=== PATIENT | female | born 1955 | race Caucasian/White ===

== ENCOUNTER → 2021-07-11 | Outpatient (CLI) | payer BC ==
[~2021-07-11] MED LIST: LEVO88TA70 PO; LISI-130 PO; MULT-735 PO; OMEP20TA63 PO; TOLT2CAP PO; vitamin b 12; vitamin b 6
--- NOTE | 2021-07-11 13:38 | PDOC1 ---
INITIAL PAIN CONSULT DATE OF SERVICE: DOS: DATE: 07/11/21 TIME: 13:26 CHIEF COMPLAINT: Chief Complaint: Low back and left lower extremity pain HISTORY OF PRESENT ILLNESS: 65-year-old female presents with history of pain for many years starting after lumbar surgery with laminectomy and then cage fusion in 2008 patient reports initially she did well after the surgery but the pain again returned in December 2020 she was riding a horse fairly aggressively by her report with some increased impact to her spine and had some significant pain in the left lower extremity as well as the low back to the toes on the left side as well patient reports she is done physical therapy as well as doing exercise on her own chiropractic treatments near her home as well as trigger point injections all of which helped the pain but only minimally patient continues to do stretching strength exercises as well daily as well as heat applications to the low back which is helpful but not decreasing the pain significant patient is been taking Percocet which does decrease the pain but not 100% either patient reports the pain wakes her up from sleep at night at least 4-5 times at night does not affect her bowel bladder control does affect ability to walk up which is not use any assistive devices to ambulate. Patient did have an MRI scan of the lumbar spine showing at L4-5 surgical level as well as mild to moderate left neuroforaminal narrowing with possible abutment of the exiting L4 nerve L5-S1 shows surgical level also loss of disc height and moderate left neural foraminal narrowing and abutment of the exiting left L5 nerve root with mild right neuroforaminal narrowing with possible abutment of the exiting right L5 nerve root. Patient is recently seen neurosurgeon who is recommending no surgical interventions at this time. Patient reports no loss of motor function but significant fatigability of the left lower extremity with even walking for more than 10 to 15 minutes. Patient reports her disability rating 0-10 10 being worst is a 7 with recreation 8 with social activity 3 with occupation 2 with self-care and 5 life support activities. PAST MEDICAL HISTORY: PMH: Hypertension, arthritis, cigarette smoking, hypothyroidism PREVIOUS SURGERIES: Past Surgical Hx: Hysterectomy, laminectomy, cholecystectomy, left kidney surgery, bilateral knee surgery, left hand surgery, lumbar laminectomy with cage fusion of L3-4-5 and S1 2009 CURRENT MEDICATIONS: Current Meds: Active Scripts Medications Dose Route/Sig Max Daily Dose Days Date Category [vitamin b 12] 07/11/21 Reported [vitamin b 6] 07/11/21 Reported One-Daily Multi-Vitamin (Multivitamin) 1 Each Tablet 1 Tab PO DAILY 30 07/11/21 Reported Detrol La (Tolterodine Tartrate) 2 Mg Cap.er.24h 2 Mg PO BID 07/11/21 Reported Prilosec Otc (Omeprazole Magnesium) 20 Mg Tablet.dr 40 Mg PO DAILY 07/11/21 Reported Lisinopril 40 Mg Tablet 1 Tab PO DAILY 07/11/21 Reported Synthroid (Levothyroxine Sodium) 88 Mcg Tablet 1 Tab PO DAILY 07/11/21 Reported ALLERGIES; Allergies: Coded Allergies: codeine (Verified Allergy, Severe, anaphalaxis, 07/11/21) FAMILY HISTORY: Family Hx: Alzheimer's disease, heart disease, aneurysm SOCIAL HISTORY: Social Hx: Patient drinks alcohol very rarely smokes 1/3 pack of cigarettes and has for the last 40 years continues to smoke not use any illegal illicit or recreational drugs is , stays very active with maintaining her horses and land, and lives in [place], [place] REVIEW OF SYSTEMS: ROS: Positive for those items mentioned in history of present illness, all systems are reviewed, otherwise negative ,and are complete full and well-documented on patient's chart. PHYSICAL EXAM: VS: Blood pressure is 139/78 pulse 98 respirations 18 temperature 98.3 F height is 5 feet 3 inches weight 169 pounds. PE: PHYSICAL EXAMINATION: GENERAL: The patient is awake, alert, oriented, appropriate, very pleasant in demeanor, patient companied by her sister. HEENT: Shows normocephalic, atraumatic. Extraocular movements are intact and symmetrical. Oral cavity: Mucous membranes moist and pink. Dentition is intact. NECK: Shows anterior throat supple without palpable lymphadenopathy noted. Swallow reflex symmetrical. CHEST: Shows normal on inspection. Breath sounds are clear bilaterally, no rales rhonchi wheezes auscultated. HEART: Shows S1, S2 clear. No murmurs auscultated. ABDOMEN: Soft, nontender, nondistended. No palpable organomegaly is noted. BACK: Shows spine grossly in the midline. Normal-appearing cervical lordotic curvature. There is mild increased thoracic kyphosis, some flattening of the lumbar lordotic curvature with well-healed surgical scarring. Lumbar paraspinous muscles show symmetrical on inspection, on palpation shows some moderate tenderness diffusely throughout the upper, middle and lower distribution of the paraspinous muscles bilaterally and also into the lower thoracic paraspinous musculature, firm and tender, but without specific trigger points, without radiation of pain. The patient has good rotational motion of the lumbar spine, both laterally as well as extension and flexion without significant difficulty. No tenderness over the spinous processes, sacrum or sacroiliac regions. EXTREMITIES: Lower extremities show deep tendon reflexes 2+ in the patellar and tendo calcaneus tendons. Motor exam is 5 on a scale of 5 with right dorsiflexion, extension, quadriceps and hamstring flexion and 4/5 on the left. Peripheral pulses are 1+ posterior tibial. No peripheral edema is noted bilaterally. Lower extremities are warm and dry to touch, equal in color and appearance. Straight leg raise noted to be positive on the left approximate 35 degrees, decreased with knee flexion, right side is negative. Gaenslen's and Trenton's maneuvers are negative bilaterally. The patient is able to stand, stand on her toes without significant difficulty putting all her weight on her left side loses balance easily. Patient is walking with a slight antalgic gait does slightly favor the left lower extremity but not use any assistive device such as canes or walkers to ambulate. SKIN: Shows warm and dry, good turgor. No edema. No sores, rashes or bruising throughout. IMPRESSION: Impression: 65-year-old female with 6-month history of low back left lower extremity pain and radicular fashion following a L5-S1 dermatomal distribution. MRI scan lumbar spine as noted Previous lumbar surgery with fusion Arthritis Hypertension Cigarette smoking Plan: Options were discussed with the patient including conservative medical managements continued physical therapies and interventional techniques. Patient is doing physical therapies as had little success with medication management she like to pursue interventional techniques. We discussed a transforaminal epidural steroid injection using descriptions as well as anatomical models to describe the procedure. Patient would like to wait for preauthorization with her insurance provider once obtained we will have her return to clinic for a left-sided L5-S1 transforaminal epidural steroid injection with fluoroscopic guidance. In meantime, patient will continue with stretching strength exercises daily exercises as well as oral analgesics as currently. ENMANUEL HALL MD Jul 11, 2021 13:37
== END | disposition home or self-care (01) ==
LOC: PNCL 09:43
PROVIDERS: ATTEND Anesthesiology
DX: M79.605 Pain in left leg (principal); M54.50 Low back pain, unspecified; I10 Essential (primary) hypertension; M19.90 Unspecified osteoarthritis, unspecified site; E03.9 Hypothyroidism, unspecified; Z87.891 Personal history of nicotine dependence; Z90.710 Acquired absence of both cervix and uterus; Z90.49 Acquired absence of other specified parts of digestive tract; Z98.890 Other specified postprocedural states; Z79.899 Other long term (current) drug therapy; Z88.5 Allergy status to narcotic agent
CPT/HCPCS: 99214; G0463

== ENCOUNTER → 2021-07-25 | Outpatient (CLI) | payer BC ==
[~2021-07-25] MED LIST changes: +BUPIVACAINE MPF 0.25% 10 ML VIAL. ONE; +DEXAMETHASONE PRES.FREE 10 MG/ML VIAL. ONE; +IOHEXOL 180 MG/ML 10 ML VIAL. ONE; +LIDOCAINE 1% PF 2 ML VIAL. ONE
--- NOTE | 2021-07-25 11:26 | PDOC ---
Progress Note - Pain Clinic Date of Service: DOS: DATE: 07/25/21 TIME: Diagnosis: Dx: Lumbar radiculopathy with lumbar degenerative disc disease lumbar spinal stenosis lumbar postlaminectomy syndrome History or Present Illness: HPI: 65-year-old female returns in follow-up status post initial evaluation and preauthorization for a left transforaminal injection. Patient reports still significant pain in the low back and left lower extremity radiating posterior gluteus posterior thigh posterior calf as it was previously to the mid calf and into the ankle at times patient reports is worse with walking standing change positions better with sitting or lying down but is been waking her from sleep least once or twice a night patient reports no loss of motor function but signif icant fatigability in the left lower extremity with ambulation. Patient rates her pain as 10 on scale 10 at all times average worst and least is a 10 today patient reports is aching and dull in the back tingling burning cramping and stabbing in the leg pain which is constant with weightbearing better with sitting or laying down but again awaken her from sleep frequently patient re ports she is still taking Percocet but only rarely and generally stretches and walks off the pain when she can. Patient reports significant fatigability however in the left lower extremity compared to the right when the pain is at its worst. Patient reports no bowel or bladder incontinence. Physical Exam: VS: Blood pressure is 147/79 pulse 85 respirations 16 temperature 98.1 F height is 5 foot 3 inches weight is 164 pounds. PE: PHYSICAL EXAMINATION: GENERAL: The patient is awake, alert, oriented, appropriate, very pleasant in demeanor HEENT: Shows normocephalic, atraumatic. Extraocular movements are intact and symmetrical. Oral cavity: Mucous membranes moist and pink. NECK: Shows anterior throat supple without palpable lymphadenopathy noted. Swallow reflex symmetrical. CHEST: Shows normal on inspection. Breath sounds are clear bilaterally. HEART: Shows S1, S2 clear. No murmurs auscultated. ABDOMEN: Soft, nontender, nondistended. No palpable organomegaly is noted. BACK: Shows spine grossly in the midline. Normal-appearing cervical lordotic curvature. There is slightly increased thoracic kyphosis, some minor flattening of the lumbar lordotic curvature. Lumbar paraspinous muscles show symmetrical on inspection, on palpation shows some moderate tenderness diffusely throughout the upper, middle and lower distribution of the paraspinous muscles, without specific trigger points, without radiation of pain. The patient has good rotational motion of the lumbar spine, both laterally as well as extension and flexion without significant difficulty. EXTREMITIES: Lower extremities show deep tendon reflexes 2+ in the patellar and tendo calcaneus tendons. Motor exam is 5 on a scale of 5 with right dorsifl exion, extension, quadriceps and hamstring flexion and 4/5 on the left. Peripheral pulses are 1+ posterior tibial. No peripheral edema is noted bilaterally. Lower extremities are warm and dry. SKIN: Shows warm and dry, good turgor. No edema. No sores, rashes or bruising throughout. Procedure: Procedure: Options were discussed with the patient. Patient's old chart was reviewed as her current medication regimen updated current review of systems updated today as well. We will proceed with a left-sided L5-S1 transforaminal injection with fluoroscopic guidance. Risks were discussed including but not limited to: Bleeding, infection, possibility of epidural hematoma and subsequent neurological compromise, dural puncture, headaches, spinal cord and/or nerve damage, potential injection of vertebral artery at that level and permanent ischemic damage side effects of steroid medication, and poor results regarding pain control. Patient understands and wished to proceed. Patient will return to the clinic in approximately 2 weeks for follow-up, was counseled as to return appointment, activity level, and side effect to be aware of. Medication Injected: Med Injected: Under sterile prep and drape patient was placed in prone position using C-arm fluoroscopic guidance to identify the L5-S1 distribution oblique and slightly cephalad angled C arm. The left L5-S1 target was identified and using lidocaine for anesthetizing the skin 22-gauge Rachael pencil point needle was then used to enter the skin and into the subcutaneous tissues using direct C-arm fluoroscopic guidance to guide the needle into the transforaminal aspect of the left L5-S1 vertebrae this was confirmed with lateral views showing the needle ti p in the superior aspect of the paravertebral region. Aspiration was noted to be negative, -1.5 cc of contrast was then injected with good spread both medially into the epidural space as well as laterally along the nerve root without uptake and without distribution and uptake on digital subtraction. At this time, a solution containing 2 cc of 0.25% bupivacaine and 15 mg dexametha sone was then injected. Needle was withdrawn and sterile bandage was applied. Patient tolerated procedure well had no immediate complications Condition at Discharge: Condition at Discharge: Condition at discharge is stable, patient Tashia the procedure well and had no complications. ENMANUEL HALL MD Jul 25, 2021 11:26
--- NOTE | 2021-07-25 11:27 | PDOC4 ---
Procedure Note: ICD 10 Code: ICD 10 Code: M54.17 M51.7 M4 8.07 M 96.1 Procedure Note: Patient was consented for left transforaminal epidural steroid injection fluoroscopic guidance. Risks were discussed including but not limited to: Bleeding, infection, possibility of epidural hematoma and subsequent neurological compromise, dural puncture, headaches, spinal cord and/or nerve damage, potential injection into the vertebral artery at that level and permanent ischemic damage, side effects of steroid medication, and poor results regarding pain control. Patient understands and wished to proceed. Under sterile prep and drape patient was placed in prone position using C-arm fluoroscopic guidance to identify the L5-S1 distribution oblique and slightly cephalad angled C arm. The left L5-S1 target was identified and using lidocaine for anesthetizing the skin 22-gauge Rachael pencil point needle was then used to enter the skin and into the subcutaneous tissues using direct C-arm fluoroscopic guidance to guide the needle into the transforaminal aspect of the left L5-S1 vertebrae this was confirmed with lateral views showing the needle tip in the superior aspect of the paravertebral region. Aspiration was noted to be negative, -1.5 cc of contrast was then injected with good spread both medially into the epidural space as well as laterally along the nerve root without uptake and without distribution and uptake on digital subtraction. At this time, a solution containing 2 cc of 0.25% bupivacaine and 15 mg dexamethasone was then injected. Needle was withdrawn and sterile bandage was applied. Patient tolerated procedure well had no immediate complications ENMANUEL HALL MD Jul 25, 2021 11:27
== END | disposition home or self-care (01) ==
LOC: PNCL 10:04
PROVIDERS: ATTEND Anesthesiology
DX: M51.16 Intervertebral disc disorders with radiculopathy, lumbar region (principal); M48.061 Spinal stenosis, lumbar region without neurogenic claudication; M96.1 Postlaminectomy syndrome, not elsewhere classified; Z79.899 Other long term (current) drug therapy; Z88.5 Allergy status to narcotic agent
CPT/HCPCS: 64483; J1100; J3490; Q9965